=== PATIENT | female | born 1925 | race Caucasian/White ===

== ENCOUNTER 2016-06-06 08:50 | Emergency (ER) | payer OTHER ==
[~2016-06-06] VITALS: Ht 167.6 cm; Wt 59.0 kg
[~2016-06-06 08:50] MED LIST: ALBU18 IN; ASPI81CH43 PO; BISA-13 PO; CAR3125T PO; CHOL100047 PO; FEBU40TA PO; FURO20TA PO; LEV50T GT; POTA10TA51 PO; SIMV-8
[2016-06-06 10:20] LABS: Basophils # (auto) 0 uL; Basophils % (auto) 0.3 % (0.0-2.0); Eosinophils # (auto) 0 uL; Eosinophils % (auto) 0.7 % (0.0-7.0); Hematocrit 40.2 % (36.0-46.0); Hemoglobin 12.8 g/dL (12.2-16.2); Lymphocytes # (auto) 0.6 uL; Lymphocytes % (auto) 10.1 % (10.0-50.0); Mean Corpuscular Hemoglobin 29.7 pg (28.0-32.0); Mean Corpuscular Hgb Conc. 31.9 g/dL (32.0-36.0); Mean Corpuscular Volume 93.1 fL (80.0-100.0); Mean Platelet Volume 10.2 fL (7.4-10.4); Monocytes # (auto) 0.3 uL; Monocytes % (auto) 5.2 % (0.0-12.0); Neutrophils % (auto) 83.7 % (37.0-80.0); Platelet Count (auto) 160 10^3/uL (140-450); Red Cell Distribution Width 15.6 % (11.6-16.0)
[2016-06-06] MEDS ORDERED: methylPREDNISolone SOD SUCC 125 MG/2 ML VL IV ONE (10:30)
[2016-06-06 10:46] LABS: Albumin 3.7 g/dL (3.4-5.0); BUN/Creatinine Ratio 15.4; Bilirubin, Total 1.7 mg/dL (0.2-1.0); Calcium 9.2 mg/dL (8.5-10.1); Potassium 4.3 mmol/L (3.5-5.1); Total Protein 6.4 g/dL (6.4-8.2)
[2016-06-06 11:09] VITALS: BP 134/81
[2016-06-06 12:16] LABS: Urine Bilirubin Negative (Negative); Urine Blood Negative /uL (Negative); Urine Color Colorless (Yellow); Urine Glucose Normal (Normal); Urine Ketone Negative (Negative); Urine Nitrite Negative (Negative); Urine RBC <1 /hpf (0 - 4); Urine Squamous Epithelial Cell FEW /hpf (<5); Urine Urobilinogen Normal (Negative); Urine pH 6.5 (5.0-8.0)
[2016-06-06 12:52] LABS: B-Type Natriuretic Peptide 1546.75 pg/mL (0-100); Temperature: 22.2 C (20.0-25.0)
== END 2016-06-06 12:21 | disposition home or self-care (01) ==
LOC: EDBD 08:50 → ER 08:58
DX: F41.9 Anxiety disorder, unspecified (principal); F17.210 Nicotine dependence, cigarettes, uncomplicated; I13.0 Hypertensive heart and chronic kidney disease with heart failure and stage 1 through stage 4 chronic kidney disease, or unspecified chronic kidney disease; I50.9 Heart failure, unspecified; N18.9 Chronic kidney disease, unspecified; J44.9 Chronic obstructive pulmonary disease, unspecified; E78.5 Hyperlipidemia, unspecified; I25.2 Old myocardial infarction; E07.9 Disorder of thyroid, unspecified; M10.9 Gout, unspecified; Z79.82 Long term (current) use of aspirin; I25.810 Atherosclerosis of coronary artery bypass graft(s) without angina pectoris; Z90.710 Acquired absence of both cervix and uterus; Z98.61 Coronary angioplasty status; Z95.1 Presence of aortocoronary bypass graft
CPT/HCPCS: 36415; 71010; 80053; 81001; 83880; 84484; 85025; 93005; 94761; 96374; 99285; J2930

== ENCOUNTER → 2016-07-01 | Outpatient (CLI) | payer OTHER | END | disposition home or self-care (01) | LOC: LAB 11:53 | PROVIDERS: ATTEND Internal Medicine Cardiovascular Disease | DX: I25.5 Ischemic cardiomyopathy (principal) | CPT/HCPCS: 36415; 84443 ==

== ENCOUNTER 2016-07-06 15:37 | Emergency (ER) | payer OTHER ==
[~2016-07-06] VITALS: Ht 162.6 cm; Wt 63.5 kg
[2016-07-07 01:35] LABS: Basophils # (auto) 0 uL; Basophils % (auto) 0.7 % (0.0-2.0); Eosinophils # (auto) 0.1 uL; Eosinophils % (auto) 1.7 % (0.0-7.0); Hematocrit 42.5 % (36.0-46.0); Hemoglobin 13.8 g/dL (12.2-16.2); Lymphocytes # (auto) 1.1 uL; Lymphocytes % (auto) 21.3 % (10.0-50.0); Mean Corpuscular Hemoglobin 30.5 pg (28.0-32.0); Mean Corpuscular Hgb Conc. 32.4 g/dL (32.0-36.0); Mean Corpuscular Volume 94.1 fL (80.0-100.0); Mean Platelet Volume 10.1 fL (7.4-10.4); Monocytes # (auto) 0.5 uL; Monocytes % (auto) 9.9 % (0.0-12.0); Neutrophils # (auto) 3.5 uL; Neutrophils % (auto) 66.4 % (37.0-80.0); Platelet Count (auto) 149 10^3/uL (140-450); Red Cell Distribution Width 14.7 % (11.6-16.0); White Blood Cell 5.2 10^3/uL (4.4-10.8)
[2016-07-07 01:45] LABS: Albumin 3.4 g/dL (3.4-5.0)
[2016-07-07 01:47] LABS: Bilirubin, Total 1.8 mg/dL (0.2-1.0)
[2016-07-07 01:52] LABS: INR 1.04 (0.9-1.15); Partial Thromboplastin Time 26.6 sec (22.64-33.71); Prothrombin Time 10.7 sec (9.37-12.3)
[2016-07-07 02:06] LABS: Temperature: 21.9 C (20.0-25.0)
[2016-07-07 02:43] VITALS: BP 128/82
[2016-07-07] MEDS ORDERED: FUROSEMIDE 20 MG/2 ML VIAL IV ONE (03:00)
== END 2016-07-07 03:33 | disposition home or self-care (01) ==
LOC: ER 15:41
DX: R60.0 Localized edema (principal); I13.0 Hypertensive heart and chronic kidney disease with heart failure and stage 1 through stage 4 chronic kidney disease, or unspecified chronic kidney disease; N18.9 Chronic kidney disease, unspecified; I50.42 Chronic combined systolic (congestive) and diastolic (congestive) heart failure; J44.9 Chronic obstructive pulmonary disease, unspecified; I25.2 Old myocardial infarction; Z98.61 Coronary angioplasty status; Z86.73 Personal history of transient ischemic attack (TIA), and cerebral infarction without residual deficits; E78.5 Hyperlipidemia, unspecified; E07.9 Disorder of thyroid, unspecified; I25.10 Atherosclerotic heart disease of native coronary artery without angina pectoris; Z95.0 Presence of cardiac pacemaker; Z79.82 Long term (current) use of aspirin; Z79.899 Other long term (current) drug therapy
CPT/HCPCS: 36415; 71010; 80053; 83880; 84443; 84484; 85025; 85379; 85610; 85730; 93005; 94761; 96374; 99285; J1940

== ENCOUNTER → 2016-07-10 | Outpatient (CLI) | payer OTHER | END | disposition home or self-care (01) | LOC: RT 07-08 08:25 | PROVIDERS: ATTEND Internal Medicine | DX: J44.9 Chronic obstructive pulmonary disease, unspecified (principal) | CPT/HCPCS: 94060; 94640 ==

== ENCOUNTER 2016-09-06 22:30 | Inpatient (IN) | payer OTHER ==
[~2016-09-06] VITALS: Ht 162.6 cm; Wt 57.4 kg
[2016-09-06 22:00] VITALS: BP 131/57
[2016-09-06 22:35] VITALS: BP 131/57
[2016-09-06 23:48] LABS: Basophils # (auto) 0.1 uL; Eosinophils # (auto) 0 uL; Eosinophils % (auto) 0.9 % (0.0-7.0); Hematocrit 37.4 % (36.0-46.0); Hemoglobin 12.1 g/dL (12.2-16.2); Lymphocytes % (auto) 17.8 % (10.0-50.0); Mean Corpuscular Hemoglobin 30.3 pg (28.0-32.0); Mean Corpuscular Hgb Conc. 32.3 g/dL (32.0-36.0); Mean Corpuscular Volume 93.6 fL (80.0-100.0); Mean Platelet Volume 9.9 fL (7.4-10.4); Monocytes # (auto) 0.5 uL; Monocytes % (auto) 9.2 % (0.0-12.0); Neutrophils # (auto) 3.9 uL; Neutrophils % (auto) 71.1 % (37.0-80.0); Platelet Count (auto) 137 10^3/uL (140-450); Red Cell Distribution Width 16.8 % (11.6-16.0); White Blood Cell 5.5 10^3/uL (4.4-10.8)
[2016-09-06 23:55] LABS: INR 1.1 (0.9-1.15); Partial Thromboplastin Time 27.9 sec (22.64-33.71); Prothrombin Time 11.9 sec (9.37-12.3)
[2016-09-06 23:59] LABS: Albumin 3.2 g/dL (3.4-5.0); Anion Gap 9 (5-15); Aspartate Aminotransferase 18 U/L (15-37); BUN/Creatinine Ratio 13.4; Blood Urea Nitrogen 17 mg/dL (7-18); Calcium 8.6 mg/dL (8.5-10.1); Carbon Dioxide 24 mmol/L (21-32); Chloride 112 mmol/L (98-107); GFR African American 51 mL/min; GFR Non-African American 42 mL/min; Glucose 102 mg/dL (74-106); Potassium 3.9 mmol/L (3.5-5.1); Sodium 145 mmol/L (136-145)
[2016-09-07 00:04] LABS: Alkaline Phosphatase 79 U/L (45-117); Bilirubin, Total 2.8 mg/dL (0.2-1.0); Total Protein 5.6 g/dL (6.4-8.2)
[2016-09-07 02:18] VITALS: BP 131/57
[2016-09-07 05:09] VITALS: BP 128/81
[2016-09-07] MEDS ORDERED: MORPHINE SULF INJ 2 MG/ML SYRINGE 1ML IV PRN (07:30)
[2016-09-07] MEDS ORDERED: HYDROcodone-ACET 5/325MG TAB PO PRN (07:30)
[2016-09-07] MEDS ORDERED: FUROSEMIDE 20 MG/2 ML VIAL IV ONE (07:30)
[2016-09-07] MEDS ORDERED: DOCUSATE SOD 100 MG CAP PO PRN (07:30)
[2016-09-07] MEDS ORDERED: ALBUTEROL SULF 2.5 MG/0.5ML(0.5%) NEB SOLN NEB PRN (07:30)
[2016-09-07] MEDS ORDERED: ACETAMINOPHEN 325 MG TAB PO PRN (07:30)
[2016-09-07] MEDS ORDERED: NITROGLYCERIN 0.4 MG SL TAB SL PRN (07:30)
[2016-09-07] MEDS: LEVOTHYROXINE SODIUM 25 MCG TAB PO SCH (08:34)
[2016-09-07 09:00] VITALS: BP 117/79
[2016-09-07] MEDS ORDERED: ENOXAPARIN SOD 40 MG/0.4 ML SYRINGE SC SCH (10:00)
[2016-09-07] MEDS ORDERED: FAMOTIDINE 20 MG TAB PO SCH (10:00)
[2016-09-07] MEDS: CARVEDILOL 3.125 MG TAB PO SCH ×2 (10:17→22:53)
[2016-09-07 13:00] VITALS: BP 122/77
[2016-09-07] MEDS ORDERED: ENALAPRIL MALEATE 2.5 MG TAB PO ONE (15:00)
[2016-09-07 17:00] VITALS: BP 119/82
[2016-09-07] MEDS: FUROSEMIDE 20 MG TAB PO SCH (17:03)
[2016-09-07 21:43] VITALS: BP 118/66
[2016-09-07] MEDS: ATORVASTATIN 20 MG TAB PO SCH (22:53)
[2016-09-07 23:11] LABS: Urine Bilirubin Negative (Negative); Urine Blood Negative /uL (Negative); Urine Color Yellow (Yellow); Urine Glucose Normal (Normal); Urine Ketone Negative (Negative); Urine Nitrite Negative (Negative); Urine RBC 1 /hpf (0 - 4); Urine Squamous Epithelial Cell FEW /hpf (<5); Urine Urobilinogen Normal (Negative); Urine pH 5.5 (5.0-8.0)
[2016-09-08] VITALS (7 sets, daily range): BP systolic 92–146; BP diastolic 49–92
[2016-09-08] MEDS ORDERED: ONDANSETRON HCL 4 MG/2 ML VIAL IV PRN (05:30)
[2016-09-08 05:57] LABS: Basophils # (auto) 0 uL; Basophils % (auto) 0.2 % (0.0-2.0); Eosinophils # (auto) 0.1 uL; Eosinophils % (auto) 0.9 % (0.0-7.0); Hemoglobin 11.6 g/dL (12.2-16.2); Lymphocytes # (auto) 0.3 uL; Mean Corpuscular Hemoglobin 30.3 pg (28.0-32.0); Mean Corpuscular Hgb Conc. 32.3 g/dL (32.0-36.0); Mean Corpuscular Volume 93.8 fL (80.0-100.0); Mean Platelet Volume 9.9 fL (7.4-10.4); Monocytes # (auto) 0.3 uL; Monocytes % (auto) 6.2 % (0.0-12.0); Neutrophils # (auto) 4.8 uL; Neutrophils % (auto) 86.7 % (37.0-80.0); Platelet Count (auto) 143 10^3/uL (140-450); Red Cell Distribution Width 17.8 % (11.6-16.0); White Blood Cell 5.6 10^3/uL (4.4-10.8)
[2016-09-08 06:18] LABS: Albumin 3.4 g/dL (3.4-5.0); BUN/Creatinine Ratio 13.6; Bilirubin, Total 2.7 mg/dL (0.2-1.0); Calcium 9.2 mg/dL (8.5-10.1); Magnesium 2.2 mg/dL (1.6-2.6); Potassium 3.8 mmol/L (3.5-5.1); Total Protein 5.8 g/dL (6.4-8.2)
[2016-09-08 06:23] LABS: B-Type Natriuretic Peptide 2000.25 pg/mL (0-100)
[2016-09-08] MEDS: FUROSEMIDE 20 MG TAB PO SCH (06:25)
[2016-09-08] MEDS: LEVOTHYROXINE SODIUM 25 MCG TAB PO SCH (06:25)
[2016-09-08] MEDS: ENALAPRIL MALEATE 2.5 MG TAB PO SCH (09:08)
[2016-09-08] MEDS: CARVEDILOL 3.125 MG TAB PO SCH (09:09)
[2016-09-08] MEDS: ENOXAPARIN SOD 30 MG/0.3 ML SYRINGE SC SCH (09:09)
[2016-09-08] MEDS ORDERED: FAMOTIDINE 20 MG TAB PO SCH (10:00)
[2016-09-08] MEDS ORDERED: DIGOXIN 0.125 MG TAB PO ONE (13:00)
[2016-09-08] MEDS: SPIRONOLACTONE 25 MG TAB PO SCH (17:31)
[2016-09-08] MEDS: ATORVASTATIN 20 MG TAB PO SCH (22:59)
[2016-09-09 05:00] VITALS: BP 112/56
[2016-09-09 06:30] LABS: BUN/Creatinine Ratio 14.1; Calcium 8.6 mg/dL (8.5-10.1)
[2016-09-09] MEDS: SPIRONOLACTONE 25 MG TAB PO SCH ×2 (06:35→18:40)
[2016-09-09] MEDS: LEVOTHYROXINE SODIUM 25 MCG TAB PO SCH (06:35)
[2016-09-09 09:00] VITALS: BP 104/53
[2016-09-09] MEDS: DIGOXIN 0.125 MG TAB PO SCH (09:36)
[2016-09-09] MEDS: FUROSEMIDE 20 MG TAB PO SCH (09:37)
[2016-09-09] MEDS: ENOXAPARIN SOD 30 MG/0.3 ML SYRINGE SC SCH (09:38)
[2016-09-09] MEDS: ENALAPRIL MALEATE 2.5 MG TAB PO SCH (09:38)
[2016-09-09 13:00] VITALS: BP 100/65
[2016-09-09 17:10] VITALS: BP 119/69
[2016-09-09 20:00] VITALS: BP 110/50
[2016-09-09 22:00] VITALS: BP 110/50
[2016-09-09] MEDS: ATORVASTATIN 20 MG TAB PO SCH (22:04)
[2016-09-10] VITALS (9 sets, daily range): BP systolic 106–120; BP diastolic 61–75
[2016-09-10 06:07] LABS: Calcium 8.2 mg/dL (8.5-10.1); Potassium 3.7 mmol/L (3.5-5.1)
[2016-09-10] MEDS: SPIRONOLACTONE 25 MG TAB PO SCH ×2 (06:27→17:49)
[2016-09-10] MEDS: LEVOTHYROXINE SODIUM 25 MCG TAB PO SCH (06:27)
[2016-09-10 06:47] LABS: BUN/Creatinine Ratio 11.9
[2016-09-10] MEDS: ENALAPRIL MALEATE 2.5 MG TAB PO SCH (09:20)
[2016-09-10] MEDS: FUROSEMIDE 20 MG TAB PO SCH (09:20)
[2016-09-10] MEDS: DIGOXIN 0.125 MG TAB PO SCH (09:20)
[2016-09-10] MEDS ORDERED: ENA2.5T PO (13:18)
[2016-09-10] MEDS ORDERED: FUR20T PO (13:18)
[2016-09-10] MEDS ORDERED: DIG0125T PO (13:18)
[2016-09-10] MEDS ORDERED: SPIR25TA88 PO (13:20)
[2016-09-10] MEDS: ATORVASTATIN 20 MG TAB PO SCH (22:49)
[2016-09-11 05:00] VITALS: BP 120/70
[2016-09-11] MEDS: SPIRONOLACTONE 25 MG TAB PO SCH (06:07)
[2016-09-11] MEDS: LEVOTHYROXINE SODIUM 25 MCG TAB PO SCH (06:07)
[2016-09-11 06:44] VITALS: BP_SYST 12; BP_SYST 121; BP_DIAS 72
[2016-09-11 08:00] VITALS: BP 121/72
[2016-09-11] MEDS: ENALAPRIL MALEATE 2.5 MG TAB PO SCH (09:41)
[2016-09-11] MEDS: DIGOXIN 0.125 MG TAB PO SCH (09:41)
[2016-09-11] MEDS: FUROSEMIDE 20 MG TAB PO SCH (09:41)
[2016-09-11 10:52] VITALS: BP 116/58
== END 2016-09-11 14:06 | disposition home or self-care (01) | DRG 291 ==
LOC: EDUNIT# 22:30 → TELE-WESTW 22:30
PROVIDERS: ATTEND Internal Medicine
DX: I13.0 Hypertensive heart and chronic kidney disease with heart failure and stage 1 through stage 4 chronic kidney disease, or unspecified chronic kidney disease (principal); I50.43 Acute on chronic combined systolic (congestive) and diastolic (congestive) heart failure; N17.0 Acute kidney failure with tubular necrosis; J96.01 Acute respiratory failure with hypoxia; E03.9 Hypothyroidism, unspecified; E78.5 Hyperlipidemia, unspecified; N18.3 Chronic kidney disease, stage 3 (moderate); I25.5 Ischemic cardiomyopathy; D64.9 Anemia, unspecified; I25.10 Atherosclerotic heart disease of native coronary artery without angina pectoris; I27.2 Other secondary pulmonary hypertension; J44.9 Chronic obstructive pulmonary disease, unspecified; Z82.49 Family history of ischemic heart disease and other diseases of the circulatory system; Z83.3 Family history of diabetes mellitus; Z95.1 Presence of aortocoronary bypass graft; Z95.5 Presence of coronary angioplasty implant and graft; Z95.810 Presence of automatic (implantable) cardiac defibrillator; Z88.8 Allergy status to other drugs, medicaments and biological substances
CPT/HCPCS: 36415; 36600; 71020; 80048; 80053; 80061; 80162; 81001; 82805; 83735; 83880; 84443; 84484; 85025; 85610; 85730; 87081; 87493; 93005; 93306; J2405

== ENCOUNTER 2016-11-06 09:33 | Inpatient (IN) | payer OTHER ==
[~2016-11-06] VITALS: Ht 165.1 cm; Wt 51.7 kg
[~2016-11-06 09:33] MED LIST changes: +DIG0125T PO; +ENA2.5T PO; +FUR20T PO; +SPIR25TA88 PO
[2016-11-06 12:01] LABS: Basophils # (auto) 0 uL; Basophils % (auto) 0.1 % (0.0-2.0); Eosinophils # (auto) 0.1 uL; Eosinophils % (auto) 1.6 % (0.0-7.0); Hematocrit 34.6 % (36.0-46.0); Hemoglobin 11.6 g/dL (12.2-16.2); Lymphocytes # (auto) 0.4 uL; Lymphocytes % (auto) 8.7 % (10.0-50.0); Mean Corpuscular Hemoglobin 30.3 pg (28.0-32.0); Mean Corpuscular Hgb Conc. 33.5 g/dL (32.0-36.0); Mean Corpuscular Volume 90.3 fL (80.0-100.0); Mean Platelet Volume 9.8 fL (7.4-10.4); Monocytes # (auto) 0.4 uL; Monocytes % (auto) 8.8 % (0.0-12.0); Neutrophils # (auto) 4.1 uL; Neutrophils % (auto) 80.8 % (37.0-80.0); Platelet Count (auto) 130 10^3/uL (140-450); Red Cell Distribution Width 14.2 % (11.6-16.0); White Blood Cell 5.1 10^3/uL (4.4-10.8)
[2016-11-06 12:29] LABS: Urine Bilirubin Negative (Negative); Urine Blood Negative /uL (Negative); Urine Color Yellow (Yellow); Urine Glucose Normal (Normal); Urine Ketone Negative (Negative); Urine Nitrite Negative (Negative); Urine RBC <1 /hpf (0 - 4); Urine Urobilinogen Normal (Negative)
[2016-11-06 12:29] LABS: Albumin 3.5 g/dL (3.4-5.0); Calcium 8.9 mg/dL (8.5-10.1); Potassium 4.2 mmol/L (3.5-5.1)
[2016-11-06 12:31] LABS: BUN/Creatinine Ratio 19.4
[2016-11-06 12:33] LABS: Bilirubin, Total 1.1 mg/dL (0.2-1.0); Total Protein 6.5 g/dL (6.4-8.2)
[2016-11-06] MEDS ORDERED: TEMAZEPAM 15 MG CAP PO PRN (12:45)
[2016-11-06] MEDS ORDERED: NITROGLYCERIN 0.4 MG SL TAB SL PRN (12:45)
[2016-11-06] MEDS ORDERED: ACETAMINOPHEN 500 MG TAB PO PRN (12:45)
[2016-11-06] MEDS ORDERED: LACTULOSE 20Gm/30ML SOLN PO PRN (12:45)
[2016-11-06] MEDS ORDERED: HYDROcodone-ACET 5/325MG TAB PO PRN (12:45)
[2016-11-06] MEDS ORDERED: LORazepam 0.5 MG TAB PO PRN (12:45)
[2016-11-06] MEDS ORDERED: MORPHINE SULF INJ 2 MG/ML SYRINGE 1ML IV PRN (12:45)
[2016-11-06 13:33] LABS: Temperature: 23.7 C (20.0-25.0)
[2016-11-06] MEDS: SODIUM CHLOR 0.9% PF (SALINE LOCK) 10ML VIAL IV SCH ×2 (14:02→22:00)
[2016-11-06] MEDS: PROMETHAZINE HCL 25 MG/ML 1ML IV PRN (15:15)
[2016-11-06] MEDS: MORPHINE SULF INJ 2 MG/ML SYRINGE 1ML IV PRN (15:15)
[2016-11-06] MEDS ORDERED: ALBUTEROL SULF 2.5 MG/0.5ML(0.5%) NEB SOLN NEB PRN (18:00)
[2016-11-06 20:07] VITALS: BP 102/57
[2016-11-06 21:44] VITALS: BP 99/56
[2016-11-06] MEDS: CARVEDILOL 3.125 MG TAB PO SCH (23:27)
[2016-11-06] MEDS: ATORVASTATIN 20 MG TAB PO SCH (23:27)
[2016-11-07 01:00] VITALS: BP 99/56
[2016-11-07 05:02] VITALS: BP 116/53
[2016-11-07] MEDS: SODIUM CHLOR 0.9% PF (SALINE LOCK) 10ML VIAL IV SCH ×3 (06:00→22:00)
[2016-11-07 06:34] LABS: Basophils # (auto) 0 uL; Basophils % (auto) 0.4 % (0.0-2.0); Eosinophils # (auto) 0.1 uL; Eosinophils % (auto) 2.8 % (0.0-7.0); Hemoglobin 11.3 g/dL (12.2-16.2); Lymphocytes # (auto) 0.5 uL; Lymphocytes % (auto) 14.6 % (10.0-50.0); Mean Corpuscular Hemoglobin 30.7 pg (28.0-32.0); Mean Corpuscular Hgb Conc. 34.2 g/dL (32.0-36.0); Mean Corpuscular Volume 89.8 fL (80.0-100.0); Mean Platelet Volume 9.6 fL (7.4-10.4); Monocytes # (auto) 0.5 uL; Monocytes % (auto) 14.4 % (0.0-12.0); Neutrophils # (auto) 2.5 uL; Neutrophils % (auto) 67.8 % (37.0-80.0); Platelet Count (auto) 118 10^3/uL (140-450); Red Cell Distribution Width 13.9 % (11.6-16.0); White Blood Cell 3.7 10^3/uL (4.4-10.8)
[2016-11-07 06:52] LABS: Potassium 4.8 mmol/L (3.5-5.1)
[2016-11-07 06:59] LABS: Albumin 3.1 g/dL (3.4-5.0); BUN/Creatinine Ratio 20.5; Calcium 8.9 mg/dL (8.5-10.1)
[2016-11-07 07:01] LABS: Bilirubin, Total 1.4 mg/dL (0.2-1.0); Total Protein 5.8 g/dL (6.4-8.2)
[2016-11-07] MEDS: LEVOTHYROXINE SODIUM 50 MCG TAB GT SCH (07:12)
[2016-11-07 09:00] VITALS: BP 111/58
[2016-11-07] MEDS: BISACODYL 5 MG EC TAB PO SCH (09:12)
[2016-11-07] MEDS: POTASSIUM CHL 10 Meq TABLET PO SCH (09:12)
[2016-11-07] MEDS: SPIRONOLACTONE 25 MG TAB PO SCH (09:12)
[2016-11-07] MEDS: ASPirin 81 mg TAB PO SCH (09:13)
[2016-11-07] MEDS: FUROSEMIDE 20 MG TAB PO SCH (09:13)
[2016-11-07] MEDS: CARVEDILOL 3.125 MG TAB PO SCH ×2 (09:13→23:02)
[2016-11-07] MEDS: ENALAPRIL MALEATE 2.5 MG TAB PO SCH (09:14)
[2016-11-07] MEDS: DIGOXIN 0.125 MG TAB PO SCH (09:17)
[2016-11-07] MEDS ORDERED: ASPirin 81 mg TAB PO SCH (10:00)
[2016-11-07 12:58] VITALS: BP 106/75
[2016-11-07 16:46] VITALS: BP 102/56
[2016-11-07 22:19] VITALS: BP 107/58
[2016-11-07] MEDS: ATORVASTATIN 20 MG TAB PO SCH (23:02)
[2016-11-08 04:58] VITALS: BP 109/50
[2016-11-08] MEDS: SODIUM CHLOR 0.9% PF (SALINE LOCK) 10ML VIAL IV SCH ×3 (06:39→22:10)
[2016-11-08] MEDS: LEVOTHYROXINE SODIUM 50 MCG TAB GT SCH (06:40)
[2016-11-08 08:00] VITALS: BP 108/51
[2016-11-08] MEDS: BISACODYL 5 MG EC TAB PO SCH (08:52)
[2016-11-08] MEDS: DIGOXIN 0.125 MG TAB PO SCH (08:53)
[2016-11-08] MEDS: ASPirin 81 mg TAB PO SCH (08:54)
[2016-11-08] MEDS: CARVEDILOL 3.125 MG TAB PO SCH ×2 (08:54→22:00)
[2016-11-08] MEDS: POTASSIUM CHL 10 Meq TABLET PO SCH (08:54)
[2016-11-08] MEDS: FUROSEMIDE 20 MG TAB PO SCH (08:55)
[2016-11-08] MEDS: SPIRONOLACTONE 25 MG TAB PO SCH (08:55)
[2016-11-08] MEDS: ENALAPRIL MALEATE 2.5 MG TAB PO SCH (08:55)
[2016-11-08 09:00] VITALS: BP 105/49
[2016-11-08] MEDS: MORPHINE SULF INJ 2 MG/ML SYRINGE 1ML IV PRN (10:13)
[2016-11-08 13:00] VITALS: BP 98/50
[2016-11-08 17:00] VITALS: BP 105/52
[2016-11-08 21:40] VITALS: BP 93/44
[2016-11-08] MEDS: ATORVASTATIN 20 MG TAB PO SCH (22:09)
[2016-11-09] MEDS: PROMETHAZINE HCL 25 MG/ML 1ML IV PRN (04:25)
[2016-11-09 04:40] VITALS: BP 120/71
[2016-11-09] MEDS: SODIUM CHLOR 0.9% PF (SALINE LOCK) 10ML VIAL IV SCH ×2 (06:02→14:00)
[2016-11-09] MEDS: LEVOTHYROXINE SODIUM 50 MCG TAB GT SCH (06:09)
[2016-11-09 06:38] LABS: Potassium 4.7 mmol/L (3.5-5.1)
[2016-11-09 06:39] LABS: Basophils # (auto) 0 uL; Basophils % (auto) 0.5 % (0.0-2.0); Eosinophils # (auto) 0.1 uL; Eosinophils % (auto) 2.6 % (0.0-7.0); Hematocrit 32.6 % (36.0-46.0); Hemoglobin 10.9 g/dL (12.2-16.2); Lymphocytes # (auto) 0.6 uL; Lymphocytes % (auto) 12.1 % (10.0-50.0); Mean Corpuscular Hemoglobin 30.5 pg (28.0-32.0); Mean Corpuscular Hgb Conc. 33.6 g/dL (32.0-36.0); Mean Corpuscular Volume 90.8 fL (80.0-100.0); Monocytes # (auto) 0.6 uL; Monocytes % (auto) 12.9 % (0.0-12.0); Neutrophils # (auto) 3.3 uL; Neutrophils % (auto) 71.9 % (37.0-80.0); Platelet Count (auto) 119 10^3/uL (140-450); Red Cell Distribution Width 13.6 % (11.6-16.0); White Blood Cell 4.5 10^3/uL (4.4-10.8)
[2016-11-09 06:52] LABS: BUN/Creatinine Ratio 18.7; Calcium 9.3 mg/dL (8.5-10.1)
[2016-11-09 07:57] VITALS: BP 99/50
[2016-11-09 08:00] VITALS: BP 93/44
[2016-11-09] MEDS: CARVEDILOL 3.125 MG TAB PO SCH (10:00)
[2016-11-09] MEDS: ENALAPRIL MALEATE 2.5 MG TAB PO SCH (10:00)
[2016-11-09] MEDS: ASPirin 81 mg TAB PO SCH (10:00)
[2016-11-09] MEDS: SPIRONOLACTONE 25 MG TAB PO SCH (10:19)
[2016-11-09] MEDS: BISACODYL 5 MG EC TAB PO SCH (10:19)
[2016-11-09] MEDS: POTASSIUM CHL 10 Meq TABLET PO SCH (10:20)
[2016-11-09] MEDS: FUROSEMIDE 20 MG TAB PO SCH (10:21)
[2016-11-09] MEDS: DIGOXIN 0.125 MG TAB PO SCH (10:21)
[2016-11-09 12:41] VITALS: BP 103/59
[2016-11-09 15:58] VITALS: BP 99/50
[2016-11-09 16:30] VITALS: BP 112/47
== END 2016-11-09 18:30 | disposition home or self-care (01) | DRG 605 ==
LOC: ER 09:33 → EDBD 09:33 → TELE 09:34 → TELE-WESTW 19:58
PROVIDERS: ADMIT Internal Medicine; ATTEND Internal Medicine
DX: S00.83XA Contusion of other part of head, initial encounter (principal); I13.0 Hypertensive heart and chronic kidney disease with heart failure and stage 1 through stage 4 chronic kidney disease, or unspecified chronic kidney disease; S32.512A Fracture of superior rim of left pubis, initial encounter for closed fracture; I50.22 Chronic systolic (congestive) heart failure; I25.10 Atherosclerotic heart disease of native coronary artery without angina pectoris; F41.9 Anxiety disorder, unspecified; M10.9 Gout, unspecified; J44.9 Chronic obstructive pulmonary disease, unspecified; E78.5 Hyperlipidemia, unspecified; N18.9 Chronic kidney disease, unspecified; M19.90 Unspecified osteoarthritis, unspecified site; R58 Hemorrhage, not elsewhere classified; Y93.01 Activity, walking, marching and hiking; W01.198A Fall on same level from slipping, tripping and stumbling with subsequent striking against other object, initial encounter; D69.6 Thrombocytopenia, unspecified; I27.2 Other secondary pulmonary hypertension; E03.9 Hypothyroidism, unspecified; Z86.73 Personal history of transient ischemic attack (TIA), and cerebral infarction without residual deficits; I25.2 Old myocardial infarction; Z82.49 Family history of ischemic heart disease and other diseases of the circulatory system; Z95.1 Presence of aortocoronary bypass graft; Z90.49 Acquired absence of other specified parts of digestive tract; Z90.710 Acquired absence of both cervix and uterus; Z88.8 Allergy status to other drugs, medicaments and biological substances; Y92.89 Other specified places as the place of occurrence of the external cause; Y99.8 Other external cause status; Y92.098 Other place in other non-institutional residence as the place of occurrence of the external cause
CPT/HCPCS: 36415; 70450; 71010; 73502; 80048; 80053; 81001; 82550; 82607; 82746; 84443; 84484; 85025; 86141; 93005; 96374; 96375; 97110; 97116; 97530

== ENCOUNTER → 2017-04-16 | Outpatient (CLI) | payer OTHER | END | disposition home or self-care (01) | LOC: XYW 08:57 | PROVIDERS: ATTEND Internal Medicine Cardiovascular Disease | DX: I08.1 Rheumatic disorders of both mitral and tricuspid valves (principal); I11.0 Hypertensive heart disease with heart failure; I50.9 Heart failure, unspecified; J44.9 Chronic obstructive pulmonary disease, unspecified | CPT/HCPCS: 93306 ==

== ENCOUNTER → 2017-05-05 | Outpatient (CLI) | payer OTHER ==
[2017-05-05 16:09] LABS: Urine RBC None Seen /hpf (0 - 4)
[2017-05-05 16:29] LABS: Basophils # (auto) 0 uL; Basophils % (auto) 0.5 % (0.0-2.0); Eosinophils # (auto) 0.1 uL; Hematocrit 37.1 % (36.0-46.0); Hemoglobin 12.4 g/dL (12.2-16.2); Lymphocytes # (auto) 0.7 uL; Lymphocytes % (auto) 16.1 % (10.0-50.0); Mean Corpuscular Hemoglobin 30.4 pg (28.0-32.0); Mean Corpuscular Hgb Conc. 33.4 g/dL (32.0-36.0); Mean Corpuscular Volume 91.2 fL (80.0-100.0); Monocytes # (auto) 0.5 uL; Monocytes % (auto) 10.6 % (0.0-12.0); Neutrophils # (auto) 3.3 uL; Neutrophils % (auto) 70.8 % (37.0-80.0); Nucleated Red Blood Cells % 0.1 %; Platelet Count (auto) 144 10^3/uL (140-450); Red Cell Distribution Width 16.2 % (11.8-14.3); White Blood Cell 4.6 10^3/uL (4.4-10.8)
[2017-05-05 16:33] LABS: Urine Bilirubin Negative (Negative); Urine Blood Negative /uL (Negative); Urine Color Yellow (Yellow); Urine Glucose Normal (Normal); Urine Hyaline Cast FEW /lpf (0 - 2); Urine Ketone Negative (Negative); Urine Mucus FEW (None Seen); Urine Nitrite Negative (Negative); Urine Squamous Epithelial Cell FEW /hpf (<5); Urine Urobilinogen Normal (Negative); Urine pH 5.5 (5.0-8.0)
[2017-05-05 16:46] LABS: INR 0.94 (0.9-1.15); Partial Thromboplastin Time 26.4 sec (22.64-33.71); Prothrombin Time 10.2 sec (9.37-12.3)
[2017-05-05 16:49] LABS: BUN/Creatinine Ratio 17.3; Calcium 9.3 mg/dL (8.5-10.1); Potassium 3.6 mmol/L (3.5-5.1)
== END | disposition home or self-care (01) ==
LOC: LAB 16:03
PROVIDERS: ATTEND Specialist
DX: I11.0 Hypertensive heart disease with heart failure (principal); I50.9 Heart failure, unspecified; J44.9 Chronic obstructive pulmonary disease, unspecified; D64.9 Anemia, unspecified; R79.1 Abnormal coagulation profile; R31.0 Gross hematuria
CPT/HCPCS: 36415; 80048; 81001; 85025; 85610; 85730

== ENCOUNTER 2017-05-11 09:48 | Day surgery (SDC) | payer OTHER ==
[~2017-05-11] VITALS: Ht 162.6 cm; Wt 51.3 kg
[~2017-05-11 09:48] MED LIST changes: -ALBU18 IN; -BISA-13 PO; -CAR3125T PO; -DIG0125T PO; +DIGO1TAB35 PO; +ESCI10TA53 PO; -FEBU40TA PO; -FUR20T PO; -LEV50T GT; +LEVO25TA6 PO; -POTA10TA51 PO
[2017-05-11] MEDS ORDERED: VANCOMYCIN HCL 1000 MG VL IR ONE (10:45)
[2017-05-11] MEDS ORDERED: BACITRACIN 50000 UNIT IR ONE (10:45)
[2017-05-11] MEDS ORDERED: VANCOMYCIN 1GM/250ML 250 ML IV ONE ×3 (10:45→13:00)
[2017-05-11] MEDS ORDERED: BACITRACIN INJ 50000 UNIT VIAL TOP ONE (11:00)
[2017-05-11] MEDS ORDERED: LIDOCAINE 2%HCL (LOCAL ANESTH.) INJ 20ML MDV ONE (11:05)
[2017-05-11] MEDS ORDERED: MIDAZOLAM HCL 1MG/1ML-2 ML VIAL ONE (11:38)
[2017-05-11] MEDS ORDERED: fentaNYL CITRATE 100 MCG/2 ML VL ONE (11:38)
[2017-05-11] MEDS ORDERED: ceFAZolin 1GM VL ONE (11:43)
[2017-05-11] MEDS ORDERED: BACITRACIN INJ 50000 UNIT VIAL ONE (11:44)
[2017-05-11] MEDS ORDERED: ONDANSETRON HCL 4 MG/2 ML VIAL ONE (12:45)
[2017-05-11] MEDS ORDERED: DOXYCYCLINE 100 MG TAB/CAP PO ONE (13:30)
[2017-05-11] MEDS ORDERED: BACITRACIN-POLYMYXIN B TOPICAL OINT UD TOP ONE (13:30)
[2017-05-11] MEDS ORDERED: ceFAZolin 1GM/50ML 50 ML IV ONE (13:30)
== END 2017-05-11 15:25 | disposition home or self-care (01) ==
LOC: CATH 09:48
PROVIDERS: ATTEND Specialist
DX: T82.111A Breakdown (mechanical) of cardiac pulse generator (battery), initial encounter (principal); I25.5 Ischemic cardiomyopathy; I50.82 Biventricular heart failure; I20.9 Angina pectoris, unspecified; I25.10 Atherosclerotic heart disease of native coronary artery without angina pectoris; Z95.1 Presence of aortocoronary bypass graft; J44.9 Chronic obstructive pulmonary disease, unspecified; J43.9 Emphysema, unspecified; G47.30 Sleep apnea, unspecified; Z90.710 Acquired absence of both cervix and uterus; F41.9 Anxiety disorder, unspecified; F32.9 Major depressive disorder, single episode, unspecified; Z87.891 Personal history of nicotine dependence; Z95.0 Presence of cardiac pacemaker; Z86.73 Personal history of transient ischemic attack (TIA), and cerebral infarction without residual deficits; E11.22 Type 2 diabetes mellitus with diabetic chronic kidney disease; I12.9 Hypertensive chronic kidney disease with stage 1 through stage 4 chronic kidney disease, or unspecified chronic kidney disease; N18.3 Chronic kidney disease, stage 3 (moderate); E78.5 Hyperlipidemia, unspecified; E03.9 Hypothyroidism, unspecified; I48.91 Unspecified atrial fibrillation; I71.4 Abdominal aortic aneurysm, without rupture
CPT/HCPCS: 33264; 93005; C1882; J0690; J2250; J2405; J3010; J3370; J7030; 99152; 99153

== ENCOUNTER 2017-05-27 08:36 | Day surgery (SDC) | payer OTHER ==
[~2017-05-27] VITALS: Ht 162.6 cm; Wt 51.3 kg
[2017-05-27 09:22] LABS: Basophils # (auto) 0 uL; Basophils % (auto) 0.5 % (0.0-2.0); Eosinophils # (auto) 0.1 uL; Eosinophils % (auto) 1.2 % (0.0-7.0); Hematocrit 36.7 % (36.0-46.0); Hemoglobin 12.3 g/dL (12.2-16.2); Lymphocytes # (auto) 0.5 uL; Lymphocytes % (auto) 11.3 % (10.0-50.0); Mean Corpuscular Hemoglobin 30.7 pg (28.0-32.0); Mean Corpuscular Hgb Conc. 33.5 g/dL (32.0-36.0); Mean Corpuscular Volume 91.7 fL (80.0-100.0); Monocytes # (auto) 0.4 uL; Monocytes % (auto) 7.8 % (0.0-12.0); Neutrophils # (auto) 3.8 uL; Neutrophils % (auto) 79.2 % (37.0-80.0); Platelet Count (auto) 126 10^3/uL (140-450); Red Cell Distribution Width 16.1 % (11.8-14.3); White Blood Cell 4.8 10^3/uL (4.4-10.8)
[2017-05-27 09:35] LABS: BUN/Creatinine Ratio 14.9; Calcium 8.9 mg/dL (8.5-10.1); Potassium 4.4 mmol/L (3.5-5.1)
[2017-05-27 10:14] LABS: INR 0.95 (0.9-1.15); Partial Thromboplastin Time 26.6 sec (22.64-33.71); Prothrombin Time 10.4 sec (9.37-12.3)
[2017-05-27] MEDS ORDERED: ceFAZolin 1GM/50ML 50 ML IV ONE (10:45)
[2017-05-27] MEDS ORDERED: LIDOCAINE 1% HCL (LOCAL ANESTH.) INJ 20ML MDV ONE (10:58)
[2017-05-27] MEDS ORDERED: MIDAZOLAM HCL 1MG/1ML-2 ML VIAL ONE (11:13)
[2017-05-27] MEDS ORDERED: fentaNYL CITRATE 100 MCG/2 ML VL ONE (11:13)
[2017-05-27] MEDS ORDERED: METOCLOPRAMIDE HCL 5MG/ml INJ 2ml VIAL ONE (11:13)
[2017-05-27] MEDS ORDERED: ONDANSETRON HCL 4 MG/2 ML VIAL IV ONE (11:30)
[2017-05-27] MEDS ORDERED: HYDROmorphone HCL 2 MG/ML VL IV PRN (11:30)
[2017-05-27] MEDS ORDERED: NALOXONE HCL 0.4 MG/ML VIAL IV PRN (11:30)
[2017-05-27] MEDS ORDERED: PROPOFOL 10 MG/ML 20 ML IV ONE (11:37)
[2017-05-27 12:52] VITALS: BP 105/65
== END 2017-05-27 13:02 | disposition home or self-care (01) ==
LOC: SUR 08:36
PROVIDERS: ATTEND Surgery
DX: C43.61 Malignant melanoma of right upper limb, including shoulder (principal); I50.9 Heart failure, unspecified; I20.9 Angina pectoris, unspecified; I25.10 Atherosclerotic heart disease of native coronary artery without angina pectoris; Z95.1 Presence of aortocoronary bypass graft; J44.9 Chronic obstructive pulmonary disease, unspecified; J43.9 Emphysema, unspecified; J45.909 Unspecified asthma, uncomplicated; G47.30 Sleep apnea, unspecified; Z90.710 Acquired absence of both cervix and uterus; F41.9 Anxiety disorder, unspecified; F32.9 Major depressive disorder, single episode, unspecified; Z87.891 Personal history of nicotine dependence; Z90.49 Acquired absence of other specified parts of digestive tract; Z95.0 Presence of cardiac pacemaker
CPT/HCPCS: 11606; 36415; 80048; 85025; 85610; 85730; 88305; J0690; J2001; J2250; J2704; J2765; J3010; Q4131